=== PATIENT | female | born 1990 | race Caucasian/White ===

== ENCOUNTER 2018-04-22 12:36 | Inpatient (IN) ==
[2018-04-22] MEDS ORDERED: Oxytocin 30 Units/500ml Premix 30 UNITS/500 ML BAG IV.SIG ONE (13:50)
[2018-04-22] MEDS ORDERED: Naloxone Inj 0.4 MG/ML Vial IV.PUSH PRN (13:50)
[2018-04-22] MEDS ORDERED: Sod Chloride 0.9% Inj 1,000 ML IV.CONT PRN (13:50)
[2018-04-22] MEDS ORDERED: fentaNYL Citrate Inj 100 MCG/2 ML Ampul IV.PUSH PRN ×2 (13:50)
[2018-04-22] MEDS ORDERED: Sodium Chlor 0.9% Inj 500 ML IV.SIG PRN (13:50)
[2018-04-22] MEDS ORDERED: Sod Chloride 0.9% Inj 1,000 ML IRRIGATION SCH (14:00)
[2018-04-22] MEDS ORDERED: Citric Acid/Sodium Citrate Liq 30 ML UDC PO SCH (14:00)
[2018-04-22 14:05] LABS: Baso % (Auto) 0.1 % (0.0-2.0); Eos % (Auto) 0.4 % (0.0-4.0); Hematocrit 37.5 % (35.0-46.0); Hemoglobin 12.5 gm/dL (11.6-15.3); Lymph # (Auto) 1.3 th/mm3 (1.0-4.8); Lymph % (Auto) 14.4 % (9.0-44.0); Mean Corpuscular HGB Conc 33.4 % (32.0-36.0); Mean Corpuscular Hemoglobin 30.8 pg (27.0-34.0); Mean Corpuscular Volume 92.1 fL (80.0-100.0); Mean Platelet Volume 8.3 fL (7.0-11.0); Mono # (Auto) 0.7 th/mm3 (0.0-0.9); Mono % (Auto) 7.3 % (0.0-8.0); Neut % (Auto) 77.8 % (16.0-70.0); Platelet Count 248 th/mm3 (150-450); Red Blood Count 4.07 mil/mm3 (4.00-5.30); Red Cell Distribution Width 15.3 % (11.6-17.2)
[2018-04-22 14:23] LABS: Albumin 2.3 g/dL (3.4-5.0); Anion Gap 9 meq/L (5-15); Aspartate Aminotransferase 14 U/L (15-37); Blood Urea Nitrogen 5 mg/dL (7-18); Chloride 108 meq/L (98-107); Glomerular Filtration Rate Greater Than 89 mL/min (>89); Glucose,Random 94 mg/dL (74-106); Potassium 3.8 meq/L (3.5-5.1); Sodium 139 meq/L (136-145)
[2018-04-22 14:24] LABS: Alanine Aminotransferase 16 U/L (10-53); Uric Acid 3.7 mg/dl (2.6-6.0)
[2018-04-22 14:27] LABS: Alkaline Phosphatase 118 U/L (45-117); Total Protein 6.9 g/dL (6.4-8.2)
[2018-04-22 14:50] LABS: Bacteria,Urine Occasional /hpf; Bilirubin,Urine Negative (Negative); Clarity,Urine Hazy (Clear); Color,Urine Yellow (Yellw/Straw); Glucose,Urine (UA) Negative (Negative); Leukocyte Esterase,Urine Negative (Negative); Mucus,Urine Few /lpf (Occasional); Nitrite,Urine Negative (Negative); Specific Gravity,Urine 1.011 (1.002-1.035); Squamous Epithelial Cell,Urine 2 /hpf (0-5)
[2018-04-22 17:48] VITALS: RESP 18
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
[2018-04-22] MEDS ORDERED: Oxytocin 30 Units/500ml Premix 30 UNITS/500 ML BAG IV.SIG PRN (18:45)
[2018-04-22] MEDS: Insulin NovoLIN Regular Correctional Sugar Inj SQ SCH (21:06)
[2018-04-23] MEDS ORDERED: fentaNYL 2MCG-Bupiv 0.125% Epi 150 ML EPIDURAL ONE (03:45)
[2018-04-23] MEDS: fentaNYL 2MCG-Bupiv 0.125% Epi 150 ML EPIDURAL PRN ×2 (04:10→16:00)
[2018-04-23] MEDS ORDERED: Lidocaine PF 1% Inj 5 ML Vial ONE (04:30)
[2018-04-23] MEDS ORDERED: Lidocaaine 1.5%/Epinephrine 1:200,000 PF Inj 5 ML Amp ONE (04:31)
[2018-04-23] MEDS ORDERED: fentaNYL Citrate Inj 100 MCG/2 ML Ampul EPIDURAL ONE (05:19)
[2018-04-23] MEDS: Insulin NovoLIN Regular Correctional Sugar Inj SQ SCH (16:20)
[2018-04-23] MEDS ORDERED: Oxytocin 30 Units/500ml Premix 30 UNITS/500 ML BAG IV.CONT PRN (21:25)
[2018-04-23] MEDS ORDERED: Witch Hazel 50%/Glyderin 12.5% 40 Pad Jar RECTAL PRN (21:25)
[2018-04-23] MEDS ORDERED: Bisacodyl 10 MG Supp RECTAL PRN (21:25)
[2018-04-23] MEDS ORDERED: Zolpidem Tartrate 5 MG Tablet PO PRN (21:25)
[2018-04-23] MEDS ORDERED: Benzocaine 20% Top Spray 60 ML Can TOPICAL PRN (21:25)
[2018-04-23] MEDS ORDERED: Acetaminophen 325 MG Tablet PO PRN (21:25)
[2018-04-23] MEDS ORDERED: Naloxone Inj 0.4 MG/ML Vial IV.PUSH PRN (21:25)
--- NOTE | 2018-04-23 21:31 | P.OBDELI ---
Weeks Gestation: 38 Patient Started Active Labor: No Medical Induction of Labor: Yes Medical Induction Start Date: 04/22/18 Artificial Rupture of Membrane: Yes Artificial ROM Date: 04/23/18 Anesthesia: Epidural Vaginal Delivery: Normal Presentation: Occiput anterior Nuchal Cord: x1 Delayed Cord Clamping (45 sec): No Placenta: Spontaneous delivery, Intact, 3 vessel cord Laceration: Episiotomy Repair: Vicryl running Estimated blood loss (mL): 300 Infant: Female Infant Female A score (1 min): 5 score (5 min): 8 Additional Information: Beautiful delivery of Divya 2ND degree episiotomy repaired with 3-0 vicryl Placenta S/I/3VC
[2018-04-23] MEDS ORDERED: Varicella Vaccine Live 1350 UNITS/0.5 ML Vial SQ ONE (23:00)
[2018-04-23] MEDS ORDERED: Rho Immune Globulin Inj 1,500 UNIT/1.3 ML Vial IM ONE (23:00)
[2018-04-24] MEDS ORDERED: Varicella Vaccine Live 1350 UNITS/0.5 ML Vial SQ ONE (09:00)
[2018-04-24] MEDS: Prenatal Vit/Ca/Iron/Folic Acid Tablet PO SCH (09:18)
[2018-04-24] MEDS: Senna/Docusate Sodium 8.6/50 MG Tablet PO SCH ×2 (09:18→20:55)
--- NOTE | 2018-04-24 15:09 | P.PNOB ---
Subjective Post day: 1 Interval history: Doing well Pain is well controlled Baby is doing good Bleeding is normal Objective Vital Signs/I&O: Vital Signs 04/23/18 15:19 04/23/18 15:21 04/23/18 16:01 Temperature 97.7 F Pulse Rate 84 Respiratory Rate 18 18 Blood Pressure 90/61 L 04/23/18 16:02 04/23/18 17:10 04/23/18 17:11 Temperature Pulse Rate 80 105 H Respiratory Rate 18 Blood Pressure 97/48 L 121/73 04/23/18 17:56 04/23/18 18:00 04/23/18 18:47 Temperature 98.6 F Pulse Rate Respiratory Rate 18 18 Blood Pressure 04/23/18 18:50 04/23/18 19:45 04/23/18 19:46 Temperature 98.0 F Pulse Rate 86 91 H Respiratory Rate 18 Blood Pressure 103/51 L 124/82 04/23/18 20:46 04/23/18 21:08 04/23/18 21:16 Temperature Pulse Rate 96 H 95 H 94 H Respiratory Rate Blood Pressure 121/80 129/83 123/79 04/23/18 21:25 04/23/18 21:31 04/23/18 21:46 Temperature Pulse Rate 90 90 Respiratory Rate 18 Blood Pressure 127/73 127/74 04/23/18 21:47 04/23/18 22:01 04/23/18 22:55 Temperature Pulse Rate 106 H 101 H Respiratory Rate 18 18 Blood Pressure 137/79 117/78 04/23/18 23:18 04/24/18 08:11 Temperature 98.3 F 97.6 F Pulse Rate 68 79 Respiratory Rate 18 18 Blood Pressure 123/68 114/71 Result Diagrams: 04/22/18 13:00 04/22/18 13:00 Objective Remarks: GENERAL: Well-nourished, well-developed patient. CARDIOVASCULAR: Regular rate and rhythm without murmurs, gallops, or rubs. RESPIRATORY: Breath sounds equal bilaterally. No accessory muscle use. ABDOMEN/GI: Abdomen soft, non-tender. Fundus: Firm, non-tender at umbilicus. GENITOURINARY: Light to moderate bleeding. EXTREMITIES: No cyanosis or edema, non-tender, without signs of DVT. Medications and IVs: Active Medications Acetaminophen (Tylenol) 650 mg PO Q4H PRN PRN Reason: PAIN SCALE 1 TO 2 Al Hydroxide/Mg Hydroxide (Milk Of Magnesia Liq) 30 ml PO Q12H PRN PRN Reason: Mild Constipation Benzocaine (Americaine 20% [place]) 1 spray TOPICAL Q4H PRN PRN Reason: For Perineum Discomfort Last Admin: 04/24/18 00:08 Dose: 1 spray Bisacodyl (Dulcolax Supp) 10 mg RECTAL DAILY PRN PRN Reason: SEVERE CONSITIPATION Diphtheria/Pertussis/Tetanus Vacc (Boostrix Vaccine Inj) 0.5 ml IM .ONCE ONE Stop: 04/24/18 16:01 Oxytocin (Pitocin 30 Units/Ns 500 Ml Premix) 30 units in 500 mls @ 100 mls/hr IV.CONT UNSCH PRN PRN Reason: Heavy bleeding Ibuprofen (Motrin) 800 mg PO Q8H PRN PRN Reason: For Cramping Last Admin: 04/24/18 00:09 Dose: 800 mg Lactulose (Lactulose Liq) 30 ml PO DAILY PRN PRN Reason: SEVERE CONSITIPATION Measles/Mumps/Rubella Vaccine Live (M-M-R Ii Vaccine Inj) 0.5 ml SQ .ONCE ONE Stop: 04/24/18 16:01 Naloxone HCl (Narcan Inj) 0.1 mg IV.PUSH Q2M PRN PRN Reason: for opiate reversal Ondansetron HCl (Zofran Odt) 4 mg PO Q6H PRN PRN Reason: NAUSEA OR VOMITING Vit/Calcium/Iron/Folic Ac (Stuartnatal Plus 3) 1 tab PO DAILY [facility] Last Admin: 04/24/18 09:18 Dose: 1 tab Senna/Docusate Sodium (Saadia-Colace) 1 tab PO BID [facility] Last Admin: 04/24/18 09:18 Dose: 1 tab Sennosides (Senokot) 17.2 mg PO Q12H PRN PRN Reason: Moderate Constipation Sodium Chloride (Ns Flush) 2 ml IV.FLUSH BID [facility] Last Admin: 04/24/18 09:18 Dose: 2 ml Sodium Chloride (Ns Flush) 2 ml IV.FLUSH PRN PRN PRN Reason: FLUSH AFTER USING IV ACCESS Witch Crystal/Glycerin (Tucks Pads) 1 applicatio RECTAL QID PRN PRN Reason: HEMORRHOIDS Last Admin: 04/24/18 00:08 Dose: 1 applicatio Zolpidem Tartrate (Ambien) 5 mg PO HS PRN PRN Reason: SLEEP Assessment and Plan - Plan PPD #1 Doing well GDM blood sugars were normal in labor. Needs 6week diabetes test HTN BPs look good Home tomorrow. Discharge Planning: ppd 2-3
[2018-04-24] MEDS ORDERED: Diphtheria/Tetanus/Pertussis Vaccine Inj 0.5 ML Syringe IM ONE (16:00)
[2018-04-24] MEDS ORDERED: Measles/Mumps/Rubella Vaccine Inj 0.5 ML Vial SQ ONE (16:00)
[2018-04-25] MEDS: Prenatal Vit/Ca/Iron/Folic Acid Tablet PO SCH (08:37)
[2018-04-25] MEDS: Senna/Docusate Sodium 8.6/50 MG Tablet PO SCH (08:37)
[2018-04-25 10:25] VITALS: BP 125/78; PULSE 87
[2018-04-25 10:26] VITALS: TEMP 98.6
[2018-04-25] MEDS ORDERED: Varicella Vaccine Live 1350 UNITS/0.5 ML Vial SQ ONE (13:00)
== END 2018-04-25 14:33 | disposition home or self-care (01) | DRG 807 ==
LOC: H2E 12:36 → H1EA 04-23 23:09
PROVIDERS: ADMIT Obstetrics & Gynecology; ATTEND Obstetrics & Gynecology
CPT/HCPCS: 80053; 81001; 82948; 82962; 84550; 85025; 86900; 86901; 88307; 90716; J7120